=== PATIENT | male | born 1955 ===

== ENCOUNTER 2018-11-20 22:57 | Emergency (ER) | payer SELFPAY ==
[2018-11-20 23:15] VITALS: RESP 20; O2SAT 96
[2018-11-20] MEDS ORDERED: Sodium Chloride 0.9% 1,000 ML IV ONE (23:38)
--- NOTE | 2018-11-20 23:38 | C.PDOC ---
History Of Present Illness The patient presents to the ED for evaluation of diffuse abdominal pain, nausea, vomiting and diarrhea which began this morning. Patient reports decreased PO intake and states he noticed increased abdominal girth. Patient denies fever, chills. Time Seen by Provider: 11/20/18 23:38 Chief Complaint (Nursing): Abdominal Pain History Per: Patient History/Exam Limitations: no limitations Onset/Duration Of Symptoms: Hrs Current Symptoms Are (Timing): Still Present Severity: Mild Pain Scale Rating Of: 2 Location Of Pain/Discomfort: Diffuse Radiation Of Pain To:: None Quality Of Discomfort: "Pain" Associated Symptoms: Nausea, Vomiting, Diarrhea. denies: Fever, Chills Exacerbating Factors: None Alleviating Factors: None Last Bowel Movement: Today Recent travel outside of the [place]: No Additional History Per: Patient Past Medical History Reviewed: Historical Data, Nursing Documentation, Vital Signs Vital Signs: Last Vital Signs Temp 98.1 F 11/20/18 23:08 Pulse 106 H 11/20/18 23:08 Resp 20 11/20/18 23:08 BP 147/110 H 11/20/18 23:08 Pulse Ox 96 11/20/18 23:08 - Medical History PMH: Arthritis Surgical History: No Surg Hx Family History: States: Unknown Family Hx - Social History Hx Alcohol Use: No Hx Substance Use: No - Immunization History Hx Tetanus Toxoid Vaccination: No Hx Influenza Vaccination: No Hx Pneumococcal Vaccination: No Review Of Systems Constitutional: Positive for: Other (decreased PO intake ). Negative for: Fever, Chills Cardiovascular: Negative for: Chest Pain, Palpitations Respiratory: Negative for: Cough, Shortness of Breath Gastrointestinal: Positive for: Nausea, Vomiting, Abdominal Pain, Diarrhea, Other (increased abdominal girth ) Genitourinary: Negative for: Dysuria, Frequency, Hematuria Musculoskeletal: Negative for: Back Pain Skin: Negative for: Rash, Lesions, Jaundice, Bruising Neurological: Negative for: Weakness, Numbness Physical Exam - Physical Exam Appears: Non-toxic, No Acute Distress Skin: Warm, Dry Head: Normacephalic Eye(s): bilateral: Normal Inspection Oral Mucosa: Moist Neck: Supple Chest: Symmetrical, No Deformity, No Tenderness Cardiovascular: Rhythm Regular, No Murmur Respiratory: No Rales, No Rhonchi, No Wheezing Gastrointestinal/Abdominal: Soft, Tenderness (mild, diffuse ), Distention, No Guarding, No Rebound, Other (tympanic to percussion ) Extremity: Normal ROM, Capillary Refill (less than 2 seconds ) Neurological/Psych: Oriented x3 ED Course And Treatment - Laboratory Results Result Diagrams: 11/21/18 00:01 11/21/18 00:01 O2 Sat by Pulse Oximetry: 96 (on RA) Pulse Ox Interpretation: Normal Progress Note: Bloodwork and urinalysis ordered. Protonix IVP, Zofran IVP and IV Fluids given. Reevaluation Time: 02:21 Reassessment Condition: Improved Disposition Counseled Patient/Family Regarding: Studies Performed, Diagnosis, Need For Followup, Rx Given - Disposition Referrals: [facility] at [facility] [Outside] Disposition: HOME/ ROUTINE Disposition Time: 23:38 Condition: FAIR Additional Instructions: Por favor regrese si los sntomas recurren. Prescriptions: Ondansetron ODT [Zofran ODT] 1 odt PO BID PRN #10 odt PRN Reason: Nausea/Vomiting Instructions: Acute Abdomen (Belly Pain), Adult (DC), Nausea and Vomiting, Adult (DC) Forms: [employer] (Pashto) Print Language: DANISH - Clinical Impression Clinical Impression: Abdominal pain, Nausea, Diarrhea - Scribe Statement The provider has reviewed the documentation as recorded by the Scribe (Carla Ambrocio) Provider Attestation: All medical record entries made by the Scribe were at my direction and personally dictated by me. I have reviewed the chart and agree that the record accurately reflects my personal performance of the history, physical exam, medical decision making, and the department course for this patient. I have also personally directed, reviewed, and agree with the discharge instructions and disposition.
[2018-11-21 00:06] LABS: BASO # 0.1 K/uL (0.0-0.2); BASO % 0.6 % (0.0-2.0); EOS # 0.1 K/uL (0.0-0.7); EOS % 0.7 % (0.0-4.0); HEMOGLOBIN 14.7 g/dL (12.0-18.0); LYMPH # 1.8 K/uL (1.0-4.3); MEAN CELL VOLUME 84.5 fL (80.0-94.0); MEAN CORPUSCULAR HEMOGLOBIN 28.2 pg (27.0-31.0); MEAN CORPUSCULAR HGB CONC 33.4 g/dL (33.0-37.0); MEAN PLATELET VOLUME 8.6 fL (7.2-11.7); MONO # 1.6 K/uL (0.0-0.8); NEUT # 8.4 K/uL (1.8-7.0); NEUT % 70.7 % (50.0-75.0); RBC 5.21 Mil/uL (4.40-5.90); RED CELL DISTRIBUTION WIDTH 14.7 % (11.5-14.5); WHITE BLOOD COUNT 11.9 K/uL (4.8-10.8)
[2018-11-21 00:16] LABS: INR 1.1; PROTHROMBIN TIME 12.2 SECONDS (9.7-12.2)
[2018-11-21 00:18] LABS: ALB/GLOB RATIO 1.2 (1.0-2.1); ALBUMIN 4.3 g/dL (3.5-5.0); ALT/SGPT 33 U/L (21-72); AST/SGOT 33 U/L (17-59); BLOOD UREA NITROGEN 14 mg/dL (9-20); CALCIUM 9.1 mg/dl (8.6-10.4); GFR NON-AFRICAN AMERICAN > 60; LIPASE 56 U/L (23-300)
[2018-11-21 00:44] LABS: SQUAMOUS EPITHIAL < 1 /hpf (0-5); URINE BACTERIA OCC (<OCC); URINE BILIRUBIN NEGATIVE (NEGATIVE); URINE BLOOD 2+ (NEGATIVE); URINE CLARITY Clear (Clear); URINE COLOR Yellow (YELLOW); URINE GLUCOSE (UA) NORMAL (Normal); URINE LEUKOCYTE ESTERASE TRACE Leu/uL (Negative); URINE PROTEIN 1+ mg/dL (NEGATIVE); URINE UROBILINOGEN NORMAL mg/dL (0.2-1.0)
[2018-11-21] MEDS ORDERED: Iodixanol 320 MG/ML 100 ML BOTTLE IV ONE (01:04)
[2018-11-21 02:47] VITALS: BP 132/83; PULSE 83; TEMP 98.3
--- NOTE | 2018-11-21 09:22 | CT ---
Date of service: 11/21/2018 PROCEDURE: CT Abdomen and Pelvis with contrast HISTORY: abd pain, increased girth COMPARISON: None. TECHNIQUE: Contrast dose: Radiation dose: Total exam DLP = 308.78 mGy-cm. This CT exam was performed using one or more of the following dose reduction techniques: Automated exposure control, adjustment of the mA and/or kV according to patient size, and/or use of iterative reconstruction technique. FINDINGS: LOWER THORAX: Small hiatal hernia. LIVER: Unremarkable. No gross lesion or ductal dilatation. GALLBLADDER AND BILE DUCTS: Unremarkable. PANCREAS: Unremarkable. No gross lesion or ductal dilatation. SPLEEN: Unremarkable. ADRENALS: Unremarkable. No mass. KIDNEYS AND URETERS: Bilateral renal calculi measuring up to 1 centimeter in the left lower pole. No hydronephrosis. 15 millimeter hypodensity in the anterior right kidney, statistically most likely representing a cyst but nonspecific. VASCULATURE: Unremarkable. No aortic aneurysm. No aortic atherosclerotic calcification or mural plaque present. BOWEL: Minimal colonic diverticulae APPENDIX: Normal appendix. PERITONEUM: Unremarkable. No free fluid. No free air. LYMPH NODES: Unremarkable. No enlarged lymph nodes. BLADDER: Unremarkable. REPRODUCTIVE: Unremarkable. BONES: No acute fracture. OTHER FINDINGS: None. IMPRESSION: Bilateral renal calculi measuring up to 1 centimeter in the left lower pole. No hydronephrosis. 15 millimeter hypodensity in the anterior right kidney, statistically most likely representing a cyst but nonspecific.
== END 2018-11-21 02:47 | disposition home or self-care (01) ==
LOC: C.ER 22:57
DX: R10.9 Unspecified abdominal pain (principal); R11.0 Nausea; R19.7 Diarrhea, unspecified
CPT/HCPCS: 74177; 80053; 81001; 83690; 85025; 85610; 85730; 96361; 96374; 96375; 99284; C9113; J2405; J7030; Q9967

== ENCOUNTER 2019-02-11 16:10 | Emergency (ER) | payer BC ==
[2019-02-11 16:47] VITALS: BP 195/55; PULSE 70; RESP 18; TEMP 98; O2SAT 98
--- NOTE | 2019-02-11 18:16 | RAD ---
HISTORY: PRODUCTIVE COUGH COMPARISON: No prior. TECHNIQUE: Chest PA and lateral, 2 views FINDINGS: LUNGS: Hazy medial right upper lobe opacity. Please note that chest x-ray has limited sensitivity for the detection of pulmonary masses. PLEURA: No significant pleural effusion identified. No definite pneumothorax . CARDIOVASCULAR: Heart size appears top normal. Atherosclerotic calcifications of the aorta. OSSEOUS STRUCTURES: No acute osseous abnormality identified. VISUALIZED UPPER ABDOMEN: Unremarkable. OTHER FINDINGS: None. IMPRESSION: Hazy medial right upper lobe opacity; correlate clinically for possibility of pneumonia. Recommend follow-up upon completion of treatment of acute symptoms.
--- NOTE | 2019-02-11 18:20 | C.PDOC ---
History Of Present Illness 63 year old male presents to ED with complaint of productive cough and SOB for 1 week. Patient denies chest pain, fever, and palpitations. Time Seen by Provider: 02/11/19 16:58 Chief Complaint (Nursing): Cough, Cold, Congestion History Per: Patient History/Exam Limitations: no limitations Onset/Duration Of Symptoms: Days (7) Current Symptoms Are (Timing): Still Present Associated Symptoms: Cough, Sputum, Other (SOB, palpitations). denies: Fever, Chills Past Medical History Reviewed: Historical Data, Nursing Documentation, Vital Signs Vital Signs: Last Vital Signs Temp 98 F 02/11/19 16:43 Pulse 70 02/11/19 16:43 Resp 18 02/11/19 16:43 BP 195/55 H 02/11/19 16:43 Pulse Ox 98 02/11/19 16:43 - Medical History PMH: Arthritis Surgical History: No Surg Hx Family History: States: Unknown Family Hx - Social History Hx Alcohol Use: No Hx Substance Use: No - Immunization History Hx Tetanus Toxoid Vaccination: No Hx Influenza Vaccination: No Hx Pneumococcal Vaccination: No Review Of Systems Constitutional: Negative for: Fever, Chills, Weakness Cardiovascular: Negative for: Chest Pain, Palpitations Respiratory: Positive for: Cough, Shortness of Breath Neurological: Negative for: Weakness, Numbness, Dizziness Physical Exam - Physical Exam Appears: Non-toxic, No Acute Distress, Other (speaking full sentences, coughing intermittently) Skin: Normal Color, Warm, Dry Head: Atraumatic, Normacephalic Throat: Normal, No Erythema, No Exudate Neck: Normal ROM, Supple Chest: Symmetrical, No Deformity Cardiovascular: Rhythm Regular, No Murmur Respiratory: No Accessory Muscle Use, No Rales, No Rhonchi, No Wheezing Extremity: Capillary Refill (<2 seconds) Neurological/Psych: Oriented x3, Normal Speech, Normal Cognition ED Course And Treatment O2 Sat by Pulse Oximetry: 98 (in RA) - Other Rad CXR X-Ray: Interpreted by Me, Viewed By Me Interpretation: IMPRESSION: Hazy medial right upper lobe opacity; correlate clinically for possibility of pneumonia. Recommend follow-up upon completion of treatment of acute symptoms. Progress Note: CXR ordered for patient. Patient given Doryx and Tessalon. Re- evaluation. Patient feels better. Discussed results and plan with patient who expresses understanding. All questions answered and there is agreement with the plan to discharge home with instructions. Patient stable for discharge. Return if symptoms persist or worsen. Disposition Counseled Patient/Family Regarding: Studies Performed, Diagnosis, Need For Followup, Rx Given - Disposition Referrals: [facility] [Outside] Disposition: HOME/ ROUTINE Disposition Time: 18:20 Condition: STABLE Additional Instructions: FOLLOW UP WITH YOUR DOCTOR IN 1-2 DAYS USE MEDICATIONS DIRECTED RETURN TO EMERGENCY ROOM IF YOUR SYMPTOMS BECOME WORSE SEGUIR [place]ER MDICO EN 1-2 SCHWART[facility]ILICE [facility] PAC[facility] SE DIRIGE VUELVA A LA ASHLEY DE EMERGENCIA SI GERA SNTOMAS SE HACEN PEOR Prescriptions: Benzonatate [Tessalon Perles] 100 mg PO BID PRN #15 sgl PRN Reason: Cough Doxycycline Monohydrate [Mondoxyne Nl] 100 mg PO BID #14 capsule Instructions: Pneumonia, Adult (DC) Forms: [employer] (Turkmen), Work Excuse Print Language: ERITREAN - Clinical Impression Clinical Impression: Pneumonia - Scribe Statement The provider has reviewed the documentation as recorded by the Scribe (Josey Chaney) All medical record entries made by the Scribe were at my direction and personally dictated by me. I have reviewed the chart and agree that the record accurately reflects my personal performance of the history, physical exam, medical decision making, and the department course for this patient. I have also personally directed, reviewed, and agree with the discharge instructions and disposition.
== END 2019-02-11 18:41 | disposition home or self-care (01) ==
LOC: C.ER 16:10
DX: J18.9 Pneumonia, unspecified organism (principal)